=== PATIENT | male | born 1985 | race Caucasian/White ===

== ENCOUNTER → 2017-07-01 | Outpatient (CLI) | payer BC ==
--- NOTE | 2017-07-01 23:25 | MR ---
EXAMINATION TYPE: MR tib fib LT wo con DATE OF EXAM: 07/01/2017 COMPARISON: NONE HISTORY: Redness and Swelling of Left Tib Fib X4 months Standard multiplanar, multisequence MRI departmental protocol Multiplanar, multisequence images of the left tibia and fibula were acquired. FINDINGS: The left tibia and fibula have fairly normal signal pattern without evidence of edema. Ther e is no evidence of a fracture. I see no focal bone destruction. The anterior and posterior muscles o f the left calf appear normal in size and contour. There is no pathologic fluid collection. There is no evidence of soft tissue mass. There is mild increased signal in the subcutaneous tissues anterior to the mid tibia consistent with edema. The remainder of exam is unremarkable. IMPRESSION: Subcutaneous edema in the anterior mid tibia region. No fracture. No soft tissue mass identified. No evidence of an abscess. No evidence of osteomyelitis. The total length of subcutaneous involvement is 18 cm.
== END | disposition home or self-care (01) ==
LOC: RADMRIMAIN 16:57
PROVIDERS: ATTEND Orthopaedic Surgery
DX: R60.1 Generalized edema (principal)

== ENCOUNTER 2017-07-08 06:43 | Day surgery (SDC) | payer BC ==
[2017-07-05 14:29] VITALS: BMI 36.8
[~2017-07-08 06:43] MED LIST: LACTATED RINGERS 1,000 ML IV SCH; LIDOCAINE 1% 20 ML VIAL (10MG/ML) FOR IV START INTRADERMA PRN
[2017-07-08 07:09] VITALS: RESP 18; TEMP 95.1
[2017-07-08] MEDS ORDERED: MIDAZOLAM 2 MG/2 ML VIAL IV ONE (07:24)
[2017-07-08] MEDS ORDERED: LACTATED RINGERS 1,000 ML IV ONE ×2 (07:33)
[2017-07-08] MEDS ORDERED: MIDAZOLAM 2 MG/2 ML VIAL IVP ONE (07:35)
[2017-07-08] MEDS ORDERED: PROPOFOL 10 MG/ML 20 ML VIAL IV ONE (07:40)
[2017-07-08] MEDS ORDERED: LIDOCAINE 1% INJ 10MG/ML (20 ML MDV) ONE (07:40)
--- NOTE | 2017-07-08 08:00 | P.GSHP ---
History of Present Illness H&P Date: 07/08/17 Chief Complaint: History of colon polyps, diverticulitis This is a 31-year-old male referred from Dr. Howard Hsu. Patient presents today for colonoscopy. He has history of colon polyps and left lower quadrant pain presumed to be due to diverticulitis. Past Medical History Past Medical History: GERD/Reflux, Hyperlipidemia History of Any Multi-Drug Resistant Organisms: None Reported Additional Past Surgical History / Comment(s): benign tumor removed from rt armpit. colonoscopy Past Anesthesia/Blood Transfusion Reactions: Motion Sickness Smoking Status: Never smoker - Past Family History Mother Family Medical History: Cancer Medications and Allergies Home Medications Medication Instructions Recorded Confirmed Type Atorvastatin [Lipitor] 20 mg PO HS 07/05/17 07/05/17 History Lansoprazole [Prevacid] 30 mg PO DAILY PRN 07/05/17 07/05/17 History Allergies Allergy/AdvReac Type Severity Reaction Status Date / Time amoxicillin [From Augmentin] Allergy Rash/Hives Verified 07/05/17 14:25 clavulanic acid Allergy Rash/Hives Verified 07/05/17 14:25 [From Augmentin] Penicillins Allergy Rash/Hives Verified 07/05/17 14:25 shellfish derived Allergy Rash/Hives Verified 07/05/17 14:25 Surgical - Exam Vital Signs Temp Pulse Resp BP Pulse Ox 95.1 F L 67 18 122/76 94 L 07/08/17 07:08 07/08/17 07:08 07/08/17 07:08 07/08/17 07:08 07/08/17 07:08 - General well developed, no distress - Eyes PERRL - ENT normal pinna - Neck no masses - Respiratory normal expansion - Cardiovascular Rhythm: regular - Abdomen Abdomen: soft, non tender Assessment and Plan Assessment: History of colon polyps. Left lower quadrant pain. We'll perform colonoscopy.
--- NOTE | 2017-07-08 08:13 | P.OP ---
Date of Procedure: 07/08/17 Preoperative Diagnosis: History colonic Polyps Left lower quadrant pain Postoperative Diagnosis: Mild diverticulosis Sigmoid biopsy pathology pending Procedure(s) Performed: Colonoscopy Anesthesia: MAC Surgeon: Juan Diego Lyons Pathology: other (Sigmoid colon) Condition: stable Disposition: PACU Description of Procedure: The patient's placed on the endoscopy table in the lateral position. He received IV sedation. Digital rectal exam was performed. There was no significant hemorrhoids. The prostate was symmetric without nodules. The flexible colonoscope was then placed patient anus passed rotator entire colon. The ileocecal valve was visually is. The cecum, ascending and transverse colon appeared normal. In the descending; was mild diverticular changes. In the sigmoid colon there is questionable inflammation and a biopsy was performed with the cold forcep. Scope was then brought back the rectum and this appeared normal. Scope was withdrawn for patient.
[2017-07-08 08:34] VITALS: BP 111/69; PULSE 66
== END 2017-07-08 09:01 | disposition home or self-care (01) ==
LOC: ORWHC2ENDO 06:43
PROVIDERS: ATTEND Surgery
DX: K57.30 Diverticulosis of large intestine without perforation or abscess without bleeding (principal); K63.5 Polyp of colon; K21.9 Gastro-esophageal reflux disease without esophagitis; E78.5 Hyperlipidemia, unspecified; Z79.899 Other long term (current) drug therapy; Z88.1 Allergy status to other antibiotic agents; Z88.0 Allergy status to penicillin; Z91.013 Allergy to seafood
CPT/HCPCS: 45380; J2250; J2001; J2704; 88305

== ENCOUNTER → 2020-05-01 | Outpatient (CLI) | payer BC | END | disposition home or self-care (01) | LOC: LABWHC1 12:54 | PROVIDERS: ATTEND Family Medicine | DX: Z20.828 Contact with and (suspected) exposure to other viral communicable diseases (principal) | CPT/HCPCS: U0003; C9803 ==

== ENCOUNTER → 2020-07-29 | Outpatient (CLI) | payer BC | END | disposition home or self-care (01) | LOC: LABWHC1 16:19 | PROVIDERS: ATTEND Surgery | DX: Z20.822 Contact with and (suspected) exposure to COVID-19 (principal) ==

== ENCOUNTER 2020-08-01 10:14 | Day surgery (SDC) | payer BC ==
[2020-07-31 08:47] VITALS: BMI 35.1
[~2020-08-01 10:14] MED LIST changes: -LIDOCAINE 1% 20 ML VIAL (10MG/ML) FOR IV START INTRADERMA PRN
[2020-08-01 10:45] VITALS: RESP 16; TEMP 98.1
[2020-08-01] MEDS ORDERED: PROPOFOL 10 MG/ML 20 ML VIAL IV ONE (10:54)
--- NOTE | 2020-08-01 11:11 | P.PCN ---
Date of Procedure: 08/01/20 Preoperative Diagnosis: History of diverticulitis Postoperative Diagnosis: Pandiverticulosis Procedure(s) Performed: Colonoscopy Anesthesia: MAC Surgeon: Lucía Gomez Pathology: none sent Condition: stable Disposition: same day Indications for Procedure: 34-year-old male with recent episode of diverticulitis requiring hospital admission. There was concern for abscess formation and patient was on IV antibiotics. This episode was greater than 8 weeks oh. Plan is for colonoscopy for further evaluation. Risks, benefits and alternatives were provided to the patient. He did provide consent prior to attending the endoscopy suite. Operative Findings: Pandiverticulosis Description of Procedure: The patient was brought to the endoscopy suite and placed in left lateral decubitus position and adequate sedation was achieved using conscious sedation. A digital rectal exam was performed and internal hemorrhoids were palpated. An endoscope was then placed in the rectum and advanced to the cecum as identified by landmarks including the appendiceal orifice and the ileocecal valve. The prep was good. The colonoscope was then slowly withdrawn, examining for any mucosal abnormalities. The cecum, ascending, transverse, descending and sigmoid colon were visualized adequately. There were no large neoplastic lesions noted throughout the colon. There were no polyps noted throughout the colon. Diverticulosis was noted scattered throughout the colon. The most significant location within the descending and sigmoid colon. There did not appear to be any area of significant scarring or stricturing. Retroflexion was performed in the rectum and internal hemorrhoids were visible. Excess air was removed, the colonoscope was withdrawn and the procedure terminated. The patient was then transferred to the recovery unit in stable condition. Repeat colonoscopy should be performed at age 48, unless otherwise symptomatic and require colonoscopy.
[2020-08-01 11:30] VITALS: BP 112/72; PULSE 83
== END 2020-08-01 12:00 | disposition home or self-care (01) ==
LOC: ORWHC2ENDO 10:14
PROVIDERS: ATTEND Surgery
DX: K57.30 Diverticulosis of large intestine without perforation or abscess without bleeding (principal); K64.8 Other hemorrhoids; K21.9 Gastro-esophageal reflux disease without esophagitis; E78.00 Pure hypercholesterolemia, unspecified; E78.5 Hyperlipidemia, unspecified; Z80.1 Family history of malignant neoplasm of trachea, bronchus and lung; Z82.49 Family history of ischemic heart disease and other diseases of the circulatory system; Z79.899 Other long term (current) drug therapy; Z88.0 Allergy status to penicillin; Z88.1 Allergy status to other antibiotic agents; Z91.013 Allergy to seafood
CPT/HCPCS: 45378; J2704